=== PATIENT | female | born 1975 | race Two or more races ===

== ENCOUNTER 2023-12-04 12:10 | Emergency (ER) | payer BC ==
[~2023-12-04] VITALS: Ht 162.6 cm; Wt 81.2 kg
[2023-12-04] MEDS ORDERED: IROSPAN 24/6 T1 EACH PO (13:02)
[2023-12-04] MEDS ORDERED: ZESTRIL2.5 MG PO (13:02)
[2023-12-04] MEDS ORDERED: HYDRODIURIL12.5 MG PO (13:02)
[2023-12-04 16:05] LABS: PH,URINE 6.5 (5.0-8.0); URINE APPEARANCE Clear; URINE BILIRRUBIN Negative (NEGATIVE); URINE BLOOD Large; URINE COLOR Orange; URINE GLUCOSE Negative (NEGATIVE); URINE LEUKOCYTE Trace; URINE NITRATE Negative; URINE PROTEIN 30 (NEGATIVE); URINE UROBILINOGEN 0.2 E.U./dl
[2023-12-04 16:06] LABS: URINE BACTERIA 1232.2 uL (0.0-1933); URINE EPITHELIAL CELLS 73.7 uL (0.0-38.8); URINE RBC 77.6 uL (0.0-20.8); URINE WBC 65.8 uL (0.0-23.2)
[2023-12-04 16:11] LABS: HEMATOCRIT 29.9 % (36.0-45.00); HEMOGLOBIN 9.1 g/dL (12.0-15.00); MEAN CELL VOLUME 61.5 fL (80.00-100.00); MEAN CORPUSCULAR HEMOGLOBIN 18.6 pg (27.00-32.0); MEAN CORPUSCULAR HGB CONC 30.3 g/dl (32.0-36.0); PLATELET COUNT 360 K/uL (150-450); RED BLOOD COUNT 4.86 M/uL (4.00-6.00); RED CELL DISTRIBUTION WIDTH 19.2 % (11.5-14.5)
[2023-12-04 16:36] LABS: ALBUMIN 4.2 gm/dL (3.4-5.0); BILIRUBIN TOTAL 0.44 mg/dL (0.3-1.2); CALCIUM 9.8 mg/dL (8.5-10.1); CREATININE SERUM 0.83 mg/dL (0.55-1.02); GFR 73.37; GLOBULINA 4.1 G/DL (2.4-3.5); POTASSIUM 3.54 mEq/L (3.5-5.1); TOTAL PROTEIN 8.3 gm/dL (6.4-8.2)
== END 2023-12-04 17:24 | disposition home or self-care (01) ==
LOC: ER 12:10
PROVIDERS: Emergency Medicine
DX: R07.9 Chest pain, unspecified (principal); Z91.018 Allergy to other foods